=== PATIENT | female | born 1990 | race Hispanic/Latino ===

== ENCOUNTER 2022-12-11 20:55 | Emergency (ER) | payer OTHER ==
[~2022-12-11] VITALS: Ht 162.6 cm; Wt 54.4 kg
[2022-12-11] MEDS ORDERED: SUBOXONE 8 MG-1 EAC1 SL (23:22)
[2022-12-11] MEDS ORDERED: ONDANSETRON ODT4 MG PO (23:22)
[2022-12-11] MEDS ORDERED: VISTARIL25 MG PO (23:22)
[2022-12-11] MEDS ORDERED: IMODIUM A-D2 M2 PO (23:22)
[2022-12-11] MEDS ORDERED: ANASPAZ0.125 MG PO (23:22)
[2022-12-11] MEDS ORDERED: MACROBID 100 M100 MG PO (23:23)
== END 2022-12-12 00:02 | disposition home or self-care (01) ==
LOC: ED 20:55
DX: F11.13 Opioid abuse with withdrawal (principal); N39.0 Urinary tract infection, site not specified
CPT/HCPCS: 36415; 80053; 81001; 84703; 85025; 99284; A9270